=== PATIENT | female | born 1985 | race Caucasian/White ===

== ENCOUNTER 2016-09-30 19:40 | Emergency (ER) | payer MEDICAID ==
[~2016-09-30] VITALS: Ht 165.1 cm; Wt 125.0 kg
[2016-09-30 19:56] VITALS: BP 126/78; PULSE 80; RESP 18; TEMP 98.5; O2SAT 99
[2016-09-30] MEDS ORDERED: ROBA750T PO (20:11)
[2016-09-30] MEDS ORDERED: DICL75TA PO (20:11)
[2016-09-30] MEDS ORDERED: ORPHENADRINE INJ 60 MG/2 ML AMP IM ONE (20:15)
[2016-09-30] MEDS ORDERED: KETOROLAC TROMETHAMINE 60 MG/2 ML (IM) VIAL IM ONE (20:15)
--- NOTE | 2016-09-30 20:17 | PD ---
HPI Chief Complaint: Back/ Neck Pain or Injury Time Seen by Provider: 20:11 Travel History International Travel<30 days: No Contact w/Intl Traveler<30days: No Traveled to known affect area: No History of Present Illness HPI 30-year-old white female presents to emergency department by EMS from [facility]. She states that she has been in the retirement since she has been discharged from assisted. She is a single parent. She is 4 months . Her significant other who is the father of her child lives at the retirement as well. She states that she was released from incarceration within the past year after being charged for burglary to help support her drug habit. She states that she was addicted to opiates. Her significant other also was addicted to opiates. She states that he recently got sober during her . The patient states that she has chronic back pain. She states that this had started her addiction. Patient states that she was having more upper back pain earlier today and laid on the ground. She states that this caused her to have exacerbation of her lower back pain. She presents for evaluation. She denies any acute bowel or bladder changes. She states the pain is moderate to be severe at times with movement. Some relief with remaining still and bending her legs up. PFSH Past Medical History Narrative Medical Cervical dysplasia, Substance abuse, chronic back pain Tetanus Vaccination: < 5 Years ?: Not Past Surgical History Gynecologic Surgery: Yes (LEEP) Social History Alcohol Use: No Tobacco Use: No Substance Use: No Allergies-Medications (Allergen,Severity, Reaction): Coded Allergies: Celexa (Verified Allergy, Intermediate, Hives, 09/30/16) Reported Meds & Prescriptions Reported Meds & Active Scripts Active Flexeril (Cyclobenzaprine HCl) 10 Mg Tab 10 Mg PO TID Diclofenac Sodium DR (Diclofenac Sodium) 75 Mg Tabdr 75 Mg PO BID Robaxin (Methocarbamol) 750 Mg Tab 1,500 Mg PO TID 10 Days Review of Systems Except as stated in HPI: all other systems reviewed are Neg Physical Exam Narrative GENERAL: Well-developed, well-nourished in no apparent distress. Nontoxic appearing. HEAD: Normocephalic, atraumatic. EYES: Pupils equal round and reactive. Extraocular motions intact. No scleral icterus. No injection or drainage. ENT: Nose clear. Throat without erythema, tonsillar hypertrophy or exudate. Uvula midline. Airway patent. NECK: Trachea midline. Supple, nontender, moves head freely. No central bony tenderness or spasm. CARDIOVASCULAR: Regular rate and rhythm without murmurs, gallops, or rubs. RESPIRATORY: Clear to auscultation. Breath sounds equal bilaterally. No wheezes , rales, or rhonchi. GASTROINTESTINAL: Abdomen soft, non-tender, nondistended. No hepato-splenomegaly , or palpable masses. No guarding. EXTREMITIES: No clubbing, cyanosis, or edema. No joint tenderness. BACK: No central bony point tenderness. The patient complains of diffuse lower thoracic and lumbar tenderness. Positive straight leg raise bilaterally. No saddle anesthesia. She has good distal pulses. She is able to sit up in bed but moves slowly due to pain. Without deformity. No flank tenderness. NEUROLOGICAL: Awake, alert and oriented x 3 .Cranial nerves grossly intact. Motor and sensory grossly within normal limits. Normal speech. Data Data Last Documented VS Vital Signs Date Time Temp Pulse Resp B/P Pulse Ox O2 Delivery O2 Flow Rate FiO2 09/30/16 20:42 70 18 133/75 99 Room Air 09/30/16 19:56 98.5 Orders Ketorolac Inj (Toradol Inj) (09/30/16 20:15) Orphenadrine Inj (Norflex Inj) (09/30/16 20:15) [facility] Medical Decision Making Medical Screen Exam Complete: Yes Emergency Medical Condition: Yes Medical Record Reviewed: Yes Differential Diagnosis MDM: High Differential diagnoses: Back spasms,Fracture, sprain, strain, HNP, drug-seeking behavior, Narrative Course I discussed no opiates with this patient. I am concerned with her history of opiate addiction in the past that she would receive opiates that this may trigger her addiction. Patient verbally states understanding. She is given Toradol 60 mg and Norflex 60 mg IM. She'll be given diclofenac and Robaxin. This is acute exacerbation of chronic back pain Diagnosis Primary Impression: Acute exacerbation of chronic low back pain Patient Instructions: General Instructions Additional Instructions: Rest. Ice for the next 3 days followed by heat . Flexeril and Voltaren. Follow-up with a primary care doctor in one week. Return to the ER for emergencies. Med/Other Pt SpecificInfo: Prescription(s) given Scripts Cyclobenzaprine (Flexeril)10 Mg Tab10 Mg PO TID #30 TAB Prov:Fadia Melo MD 09/30/[address] 75 Mg Tabdr75 Mg PO BID #20 TAB Prov:Fadia Melo MD 09/30/16 Methocarbamol (Robaxin)750 Mg Tab1,500 Mg PO TID 10 Days Prov:Fadia Melo MD 09/30/16 Disposition: 01 DISCHARGE HOME Condition: Stable Georges Sweeney Sep 30, 2016 20:17
[2016-09-30 20:42] VITALS: BP 133/75; PULSE 70; RESP 18; O2SAT 99
[2016-09-30] MEDS ORDERED: CYCL1TAB29 PO (20:49)
== END 2016-09-30 21:21 | disposition home or self-care (01) ==
LOC: NEPD 19:40
DX: M54.5 Low back pain (principal); G89.29 Other chronic pain
CPT/HCPCS: 96372; 99283; J1885; J2360

== ENCOUNTER 2016-10-14 02:05 | Emergency (ER) | payer MEDICAID ==
[~2016-10-14] VITALS: Ht 177.8 cm; Wt 89.0 kg
[~2016-10-14 02:05] MED LIST: CYCL1TAB29 PO; DICL75TA PO; ROBA750T PO
[2016-10-14 02:09] VITALS: BP 157/88; PULSE 115; RESP 18; TEMP 98.4; O2SAT 98
[2016-10-14] MEDS ORDERED: EFFE150C PO ×2 (03:16→18:31)
[2016-10-14] MEDS ORDERED: DEPA500T PO (03:16)
--- NOTE | 2016-10-14 03:31 | PD ---
HPI Chief Complaint: Psychiatric Symptoms Time Seen by Provider: 03:20 Travel History International Travel<30 days: No Contact w/Intl Traveler<30days: No Traveled to known affect area: No History of Present Illness HPI This patient was examined in the presence of a female nurse. This is a 30-year- old female who reports a history of depression, PTSD. She presents for evaluation of suicidal ideation and depression. She reports over the past 4 months she has been feeling increasingly depressed, having thoughts of suicide. She reports that recently her boyfriend broke up with her and tonight she felt increasingly suicidal. She reports that she bought some crack and injected in in her arms and legs. She was hoping that the crack would kill her however it didn't. This was approximately 4 hours ago. Her ex-boyfriend convinced her to come here for psychiatric evaluation. She endorses some pain and bruising at the injection sites in her arms and legs. She denies any other ingestions. She denies any other illicit drug use. She denies any alcohol use. Denies any other acute medical problems. PFSH Past Medical History Bipolar Disorder: Yes Diabetes: No Psychiatric: Yes (PTSD) Immunizations Current: Yes Tetanus Vaccination: < 5 Years Influenza Vaccination: No ?: Not : 5 Para: 3 Dilation and Curettage (D&C): Yes Past Surgical History Gynecologic Surgery: Yes (LEEP) Social History Alcohol Use: No Tobacco Use: Yes Substance Use: Yes (crack) Allergies-Medications (Allergen,Severity, Reaction): Coded Allergies: Celexa (Verified Allergy, Intermediate, Hives, 10/14/16) Reported Meds & Prescriptions Reported Meds & Active Scripts Active Reported Depakote DR (Divalproex Sodium) 500 Mg Tabdr 500 Mg PO BID Effexor XR 24 HR (Venlafaxine HCl) 150 Mg Cap 150 Mg PO DAILY Review of Systems Except as stated in HPI: all other systems reviewed are Neg Physical Exam Narrative GENERAL: This is a well-developed well-nourished female who appears anxious and tearful SKIN: Warm and dry. No track spring and areas of ecchymosis noted to the arms and right thigh. No erythema or drainage. HEAD: Atraumatic. Normocephalic. EYES: Pupils equal and round. No scleral icterus. No injection or drainage. ENT: No nasal bleeding or discharge. Mucous membranes pink and moist. NECK: Trachea midline. No JVD. CARDIOVASCULAR: Regular rate and rhythm. No murmur appreciated. RESPIRATORY: No accessory muscle use. Clear to auscultation. Breath sounds equal bilaterally. GASTROINTESTINAL: Abdomen soft, non-tender, nondistended. Hepatic and splenic margins not palpable. MUSCULOSKELETAL: No obvious deformities. NEUROLOGICAL: Awake and alert. No obvious cranial nerve deficits. Motor grossly within normal limits. Normal speech. PSYCHIATRIC: Depressed, anxious, tearful Data Data Last Documented VS Vital Signs Date Time Temp Pulse Resp B/P Pulse Ox O2 Delivery O2 Flow Rate FiO2 10/14/16 02:09 98.4 115 18 157/88 98 Room Air Orders Complete Blood Count With Diff (10/14/16 03:11) Comprehensive Metabolic Panel (10/14/16 03:11) Psych Screen (10/14/16 03:11) Drug Screen, Random Urine (10/14/16 03:11) Alcohol (Ethanol) (10/14/16 03:11) Salicylates (Aspirin) (10/14/16 03:22) Tylenol (Acetaminophen) (10/14/16 03:22) Oximetry (10/14/16 03:22) Ecg Monitoring (10/14/16 03:22) Ed Urine Pregnancytest Poc (10/14/16 03:23) Labs Laboratory Tests Test 10/14/16 10/14/16 10/14/16 04:00 04:13 04:15 Acetaminophen Level LESS THAN 2.0 MCG/ML White Blood Count 6.8 TH/MM3 Red Blood Count 4.59 MIL/MM3 Hemoglobin 13.1 GM/DL Hematocrit 39.5 % Mean Corpuscular Volume 85.9 FL Mean Corpuscular Hemoglobin 28.5 PG Mean Corpuscular Hemoglobin 33.2 % Concent Red Cell Distribution Width 14.4 % Platelet Count 146 TH/MM3 Mean Platelet Volume 9.4 FL Neutrophils (%) (Auto) 71.4 % Lymphocytes (%) (Auto) 17.7 % Monocytes (%) (Auto) 9.7 % Eosinophils (%) (Auto) 0.8 % Basophils (%) (Auto) 0.4 % Neutrophils # (Auto) 4.9 TH/MM3 Lymphocytes # (Auto) 1.2 TH/MM3 Monocytes # (Auto) 0.7 TH/MM3 Eosinophils # (Auto) 0.1 TH/MM3 Basophils # (Auto) 0.0 TH/MM3 CBC Comment DIFF FINAL Differential Comment Sodium Level 135 MEQ/L Potassium Level 4.7 MEQ/L Chloride Level 103 MEQ/L Carbon Dioxide Level 25.7 MEQ/L Anion Gap 6 MEQ/L Blood Urea Nitrogen 5 MG/DL Creatinine 0.59 MG/DL Estimat Glomerular Filtration 118 ML/MIN Rate Random Glucose 88 MG/DL Calcium Level 8.7 MG/DL Total Bilirubin 0.4 MG/DL Aspartate Amino Transf 60 U/L (AST/SGOT) Alanine Aminotransferase 63 U/L (ALT/SGPT) Alkaline Phosphatase 81 U/L Total Protein 7.0 GM/DL Albumin 3.2 GM/DL Salicylates Level 5.4 MG/DL Ethyl Alcohol Level LESS THAN 3 MG/DL Urine Opiates Screen NEG Urine Barbiturates Screen NEG Urine Amphetamines Screen NEG Urine Benzodiazepines Screen NEG Urine Cocaine Screen POS Urine Cannabinoids Screen NEG MDM Medical Decision Making Medical Screen Exam Complete: Yes Emergency Medical Condition: Yes Medical Record Reviewed: Yes Differential Diagnosis Major depressive disorder, depressive disorder not otherwise specified, acute psychosis, adjustment reaction, substance induced mood disorder Narrative Course 30-year-old female presents for evaluation of suicidal ideation. She endorses crack use tonight. Denies any other ingestions. The patient will be monitored. Basic lab work, ECG monitoring has been ordered. Mental health screening discussed with the patient. Psychiatric screen ordered. Drug screen is positive for cocaine. Liver enzymes are mildly elevated. The patient is medically cleared. Diagnosis Primary Impression: Suicidal ideation Delgado Puente Oct 14, 2016 03:31
[2016-10-14 04:36] LABS: AUTOMATED NEUTROPHIL # 4.9 TH/MM3 (1.8-7.7); BASOPHIL % 0.4 % (0.0-2.0); EOSINOPHIL # 0.1 TH/MM3 (0-0.4); EOSINOPHIL % 0.8 % (0.0-4.0); HEMATOCRIT 39.5 % (35.0-46.0); HEMO FLAGS DIFF FINAL; LYMPH % 17.7 % (9.0-44.0); LYMPHOCYTE # 1.2 TH/MM3 (1.0-4.8); MEAN CELL VOLUME 85.9 FL (80.0-100.0); MEAN CORPUSCULAR HEMOGLOBIN 28.5 PG (27.0-34.0); MEAN CORPUSCULAR HGB CONC 33.2 % (32.0-36.0); MONO % 9.7 % (0.0-8.0); NEUT % 71.4 % (16.0-70.0); PLATELET COUNT 146 TH/MM3 (150-450); RED BLOOD COUNT 4.59 MIL/MM3 (4.00-5.30); RED CELL DISTRIBUTION WIDTH 14.4 % (11.6-17.2); WHITE BLOOD COUNT 6.8 TH/MM3 (4.0-11.0)
[2016-10-14 04:49] LABS: AMPHETAMINE, URINE NEG (NEG); BARBITURATES, URINE NEG (NEG); COCAINE, URINE POS (NEG)
[2016-10-14 05:21] LABS: ALKALINE PHOSPHATASE 81 U/L (45-117); ALT (GPT) 63 U/L (10-53); ANION GAP 6 MEQ/L (5-15); AST (GOT) 60 U/L (15-37); BICARBONATE 25.7 MEQ/L (21.0-32.0); BLOOD UREA NITROGEN 5 MG/DL (7-18); CHLORIDE 103 MEQ/L (98-107); GLOMERULAR FILTRATION RATE 118 ML/MIN (>89); POTASSIUM 4.7 MEQ/L (3.5-5.1); SODIUM (NA) 135 MEQ/L (136-145); TOTAL BILIRUBIN ADULT 0.4 MG/DL (0.2-1.0)
[2016-10-14 05:58] VITALS: BP 121/68; PULSE 86; RESP 19; O2SAT 97
[2016-10-14 11:09] VITALS: BP 114/65; PULSE 87; RESP 17; O2SAT 95
[2016-10-14 14:05] VITALS: BP 114/68; PULSE 85; RESP 18; TEMP 97; O2SAT 95
[2016-10-14] MEDS ORDERED: IBUPROFEN 400 MG TAB PO ONE (17:45)
[2016-10-14] MEDS ORDERED: VENLAFAXINE HCL XR 75 MG CAP PO SCH (18:30)
[2016-10-14] MEDS ORDERED: DEPA500T3 PO (18:31)
[2016-10-14] MEDS ORDERED: CEPH-460 PO (18:32)
--- NOTE | 2016-10-14 18:38 | PD ---
History of Present Illness Chief Complaint: Psychiatric Symptoms Time Seen by Provider: 18:30 Travel History International Travel<30 Days: No Contact w/Intl Traveler<30days: No Known affected area: No Legal Status Legal Status: Spann Act Spann Act Signed By: History of Present Illness: Patient reportedly using crack cocaine as a suicide attempt earlier today. She now denies being suicidal and states she wants to stay in the [facility] until she can get housing with public assistance. She verbally contracts for safety and her cognition is intact. She demonstrates no suicidal or homicidal ideation, plan or intent. She exhibits no psychotic symptoms. She would like to get back on her mood stabilizing medication and her antidepressant medication , both of which were prescribed by this physician. She also requested to be placed on an antibiotic, Keflex, for what appears to be skin infections due to IV or other drug abuse. PFSH Past Medical History Medical History: Denies Significant Hx Bipolar Disorder: Yes Diabetes: No Psychiatric: Yes (PTSD) Immunizations Current: Yes Tetanus Vaccination: < 5 Years Influenza Vaccination: No ?: Not : 5 Para: 3 Dilation and Curettage (D&C): Yes Past Surgical History Gynecologic Surgery: Yes (LEEP) Psychiatric History Psychiatric History Hx Psychiatric Treatment: History of treatment for depression. History of Inpatient Treatment: No Guns or firearms in home: No Social History Hx Alcohol Use: No Hx Tobacco Use: Yes Hx Substance Use: Yes (crack) Hx of Substance Use Treatment: Yes Allergies-Medications (Allergen,Severity, Reaction): Coded Allergies: Celexa (Verified Allergy, Intermediate, Hives, 10/14/16) Reported Meds & Prescriptions Reported Meds & Active Scripts Active Keflex (Cephalexin) 500 Mg Cap 500 Mg PO Q8H Effexor XR 24 HR (Venlafaxine HCl) 150 Mg Cap 150 Mg PO DAILY Depakote ER (Divalproex Sodium) 500 Mg Norberto 500 Mg PO BID Reported Depakote DR (Divalproex Sodium) 500 Mg Tabdr 500 Mg PO BID Effexor XR 24 HR (Venlafaxine HCl) 150 Mg Cap 150 Mg PO DAILY Review of Systems ROS Limitations: Clinical Condition Exam Exam Limitations: Clinical Condition Alert: Yes [place]: Person, Place, Date Mood: Calm Affect: Appropriate Speech: Clear Eye Contact: Normal Memory Intact: Immediate, Recent, Remote Insight/Judgement Adequate MDM Medical Decision Making Assessment/Plan Patient no longer meets Spann act criteria or inpatient psychiatric hospitalization criteria. She was given prescriptions as requested and started back on her medications. She plans to return to the [facility] and get her medicines filled. Orders Complete Blood Count With Diff (10/14/16 03:11) Comprehensive Metabolic Panel (10/14/16 03:11) Psych Screen (10/14/16 03:11) Drug Screen, Random Urine (10/14/16 03:11) Alcohol (Ethanol) (10/14/16 03:11) Salicylates (Aspirin) (10/14/16 03:22) Tylenol (Acetaminophen) (10/14/16 03:22) Oximetry (10/14/16 03:22) Ecg Monitoring (10/14/16 03:22) Ed Urine Pregnancytest Poc (10/14/16 03:23) Diet Regular Basic (10/14/16 Breakfast) Diet Regular Basic (10/14/16 Dinner) Ibuprofen (Motrin) (10/14/16 17:45) Divalproex Dr (Depakote ) (10/14/16 21:00) Venlafaxine Xr (Effexor Xr) (10/14/16 18:30) Results Vital Signs Date Time Temp Pulse Resp B/P Pulse Ox O2 Delivery O2 Flow Rate FiO2 10/14/16 14:05 97.0 85 18 114/68 95 Room Air 10/14/16 11:09 87 17 114/65 95 Room Air 10/14/16 05:58 86 19 121/68 97 Room Air 10/14/16 02:09 98.4 115 18 157/88 98 Room Air Laboratory Tests Test 10/14/16 10/14/16 10/14/16 04:00 04:13 04:15 Acetaminophen Level LESS THAN 2.0 White Blood Count 6.8 Red Blood Count 4.59 Hemoglobin 13.1 Hematocrit 39.5 Mean Corpuscular Volume 85.9 Mean Corpuscular Hemoglobin 28.5 Mean Corpuscular Hemoglobin 33.2 Concent Red Cell Distribution Width 14.4 Platelet Count 146 Mean Platelet Volume 9.4 Neutrophils (%) (Auto) 71.4 Lymphocytes (%) (Auto) 17.7 Monocytes (%) (Auto) 9.7 Eosinophils (%) (Auto) 0.8 Basophils (%) (Auto) 0.4 Neutrophils # (Auto) 4.9 Lymphocytes # (Auto) 1.2 Monocytes # (Auto) 0.7 Eosinophils # (Auto) 0.1 Basophils # (Auto) 0.0 CBC Comment DIFF FINAL Differential Comment Sodium Level 135 Potassium Level 4.7 Chloride Level 103 Carbon Dioxide Level 25.7 Anion Gap 6 Blood Urea Nitrogen 5 Creatinine 0.59 Estimat Glomerular Filtration 118 Rate Random Glucose 88 Calcium Level 8.7 Total Bilirubin 0.4 Aspartate Amino Transf 60 (AST/SGOT) Alanine Aminotransferase 63 (ALT/SGPT) Alkaline Phosphatase 81 Total Protein 7.0 Albumin 3.2 Salicylates Level 5.4 Ethyl Alcohol Level LESS THAN 3 Urine Opiates Screen NEG Urine Barbiturates Screen NEG Urine Amphetamines Screen NEG Urine Benzodiazepines Screen NEG Urine Cocaine Screen POS Urine Cannabinoids Screen NEG Diagnosis Primary Impression: Adjustment disorder with mixed disturbance of emotions and conduct Prescriptions Cephalexin (Keflex)500 Mg [id number] Mg PO Q8H #21 CAP Ref 0 Prov:Edu Lott MD 10/14/16 Venlafaxine ER 24 HR (Effexor XR 24 HR)150 Mg [id number] Mg PO DAILY #30 CAP Ref 0 Prov:Edu Lott MD 10/14/16 Divalproex ER (Depakote ER)500 Mg [id number] Mg PO BID #60 TAB Ref 0 Prov:Edu Lott MD 10/14/16 Edu Lott MD Oct 14, 2016 18:38
[2016-10-14] MEDS ORDERED: DIVALPROEX DR 500 MG TABEC PO SCH (21:00)
== END 2016-10-14 20:10 | disposition home or self-care (01) ==
LOC: NEPD 02:05 → NEPJ 20:10
DX: F43.25 Adjustment disorder with mixed disturbance of emotions and conduct (principal); Z87.891 Personal history of nicotine dependence
CPT/HCPCS: 80053; 80307; 84703; 85025; 99284

== ENCOUNTER 2017-01-01 18:36 | Emergency (ER) | payer MEDICAID ==
[~2017-01-01] VITALS: Ht 175.3 cm; Wt 118.0 kg
[~2017-01-01 18:36] MED LIST changes: +CEPH-460 PO; -CYCL1TAB29 PO; +DEPA500T PO; +DEPA500T3 PO; -DICL75TA PO; +EFFE150C PO; -ROBA750T PO
[2017-01-01 18:38] VITALS: BP 140/96; PULSE 62; RESP 20; TEMP 98.6; O2SAT 99
[2017-01-01] MEDS ORDERED: GABA600T PO (20:33)
[2017-01-01] MEDS ORDERED: EFFE150C PO (20:35)
--- NOTE | 2017-01-01 20:40 | PD ---
HPI Chief Complaint: Medication Refill Request Time Seen by Provider: 20:37 Travel History International Travel<30 days: No Contact w/Intl Traveler<30days: No Traveled to known affect area: No History of Present Illness HPI 31-year-old white female presents to emergency department requesting a refill of her Effexor. She takes 150 mg of Effexor XR daily. She states that she has not had it in 24 hours. She has history of chronic depression, anxiety, PTSD, substance abuse and back pain. Patient states that she moved from [place] to [facility] and has no ability to see her doctor. She has no transportation has to take the bus. PFSH Past Medical History Narrative Medical Anxiety, depression, PTSD, substance abuse, chronic back pain Bipolar Disorder: Yes Diabetes: No Psychiatric: Yes (PTSD) Immunizations Current: Yes Tetanus Vaccination: < 5 Years ?: Not : 5 Para: 4 Miscarriage: 1 Dilation and Curettage (D&C): Yes Past Surgical History Gynecologic Surgery: Yes (LEEP) Social History Alcohol Use: No Tobacco Use: Yes Substance Use: No Allergies-Medications (Allergen,Severity, Reaction): Coded Allergies: Celexa (Verified Allergy, Intermediate, Hives, 01/01/17) Reported Meds & Prescriptions Reported Meds & Active Scripts Active Effexor XR 24 HR (Venlafaxine HCl) 150 Mg Cap 150 Mg PO DAILY Effexor XR 24 HR (Venlafaxine HCl) 150 Mg Cap 150 Mg PO DAILY Depakote ER (Divalproex Sodium) 500 Mg Norberto 500 Mg PO BID Reported Gabapentin 600 Mg Tab 600 Mg PO TID Review of Systems Except as stated in HPI: all other systems reviewed are Neg Gastrointestinal: Positive: Nausea, No: Vomiting Physical Exam Narrative GENERAL: This is a well-nourished, well-developed patient, in no apparent distress. SKIN: No rashes, ecchymoses or lesions. Warm and dry. HEAD: Atraumatic. Normocephalic. EYES: PERRL, EOMI, no discharge or injection. No scleral icterus. EARS: Clear NOSE: Nasal turbinates appear normal. THROAT: Mucosa pink and moist. Airway patent. NECK: Trachea midline. supple, moves head freely. LUNGS: Clear to auscultation. CV: Regular in rhythm. ABDOMEN: Soft nontender. EXT: No clubbing cyanosis or edema. Data Data Last Documented VS Vital Signs Date Time Temp Pulse Resp B/P Pulse Ox O2 Delivery O2 Flow Rate FiO2 01/01/17 18:38 98.6 62 20 140/96 99 Room Air Orders Venlafaxine Xr (Effexor Xr) (01/01/17 20:45) MDM Medical Decision Making Medical Screen Exam Complete: Yes Emergency Medical Condition: Yes Medical Record Reviewed: Yes Differential Diagnosis Differential diagnoses: Anxiety, depression, bipolar, PTSD, med refill Narrative Course Patient's given Effexor 150 mg XR. This is depression, medication refill Diagnosis Primary Impression: depression Additional Impression: medication refill Referrals: [facility] (Out patient) 1 day Patient Instructions: General Instructions Additional Instructions: Rest. Follow-up with [facility] this week. Medications as directed. Scripts Venlafaxine ER 24 HR (Effexor XR 24 HR)150 Mg [id number] Mg PO DAILY #15 CAP Ref 0 Prov:Merced Ray DO 01/01/17 Disposition: 01 DISCHARGE HOME Condition: Stable Georges Sweeney Jan 01, 2017 20:40
[2017-01-01] MEDS ORDERED: VENLAFAXINE HCL XR 75 MG CAP PO ONE (20:45)
== END 2017-01-01 21:10 | disposition home or self-care (01) ==
LOC: NEPK 18:36
DX: Z76.0 Encounter for issue of repeat prescription (principal); F32.9 Major depressive disorder, single episode, unspecified; F43.10 Post-traumatic stress disorder, unspecified; F31.9 Bipolar disorder, unspecified; Z79.899 Other long term (current) drug therapy; Z72.0 Tobacco use
CPT/HCPCS: 99283

== ENCOUNTER 2017-02-02 02:16 | Emergency (ER) | payer MEDICAID ==
[~2017-02-02] VITALS: Ht 175.3 cm; Wt 100.0 kg
[~2017-02-02 02:16] MED LIST changes: -CEPH-460 PO; -DEPA500T PO; +GABA600T PO
[2017-02-02 02:42] VITALS: BP 134/85; PULSE 84; RESP 20; TEMP 98.7; O2SAT 98
--- NOTE | 2017-02-02 02:56 | PD ---
HPI Chief Complaint: General Weakness Time Seen by Provider: 02:39 Travel History International Travel<30 days: No Contact w/Intl Traveler<30days: No Traveled to known affect area: No History of Present Illness HPI 31-year-old female here for evaluation of a multitude of complaints. She arrives by ambulance with her 8-month-old daughter who is also being evaluated by me for a fever. She reports that they live in a fdc, and that all the kids in the fdc have been sick. Her daughters fever started yesterday. The patient's symptoms started 3 months ago and she describes episodes of feeling lightheaded/dizzy/sick/nauseous. These episodes come and go. She states that last night she felt lightheaded. She reports history of gestational diabetes and has a glucometer. She checked her blood sugar and it was 85. She believes that this may be causing her symptoms. She also noted that this occurred after smoking a cigarette. Patient has also noted some dysuria and increased urinary frequency. PFSH Past Medical History Bipolar Disorder: Yes Diabetes: Yes (gestational) Patient Takes Glucophage: No Psychiatric: Yes (PTSD) Immunizations Current: Yes Tetanus Vaccination: < 5 Years ?: Unknown : 5 Para: 4 Miscarriage: 1 Dilation and Curettage (D&C): Yes Past Surgical History Gynecologic Surgery: Yes (LEEP) Social History Alcohol Use: No Tobacco Use: Yes (about a pack/day) Substance Use: No Allergies-Medications (Allergen,Severity, Reaction): Coded Allergies: Celexa (Verified Allergy, Intermediate, Hives, 02/02/17) Reported Meds & Prescriptions Reported Meds & Active Scripts Active No Active Prescriptions or Reported Medications Review of Systems Except as stated in HPI: all other systems reviewed are Neg Physical Exam Narrative GENERAL: Well-developed, well-nourished, awake, alert, comfortable, no apparent distress. SKIN: Focused skin assessment warm/dry. HEAD: Atraumatic. Normocephalic. EYES: Pupils equal and round. No scleral icterus. No injection or drainage. ENT: Mucous membranes pink and moist. NECK: Trachea midline. No JVD. CARDIOVASCULAR: Regular rate and rhythm. RESPIRATORY: No accessory muscle use. Clear to auscultation. Breath sounds equal bilaterally. GASTROINTESTINAL: Abdomen soft, non-tender, nondistended. MUSCULOSKELETAL: No obvious deformities. No clubbing. No cyanosis. No edema. NEUROLOGICAL: Awake and alert. No obvious cranial nerve deficits. Motor grossly within normal limits. Normal speech. PSYCHIATRIC: Appropriate mood and affect; insight and judgment normal. Data Data Last Documented VS Vital Signs Date Time Temp Pulse Resp B/P Pulse Ox O2 Delivery O2 Flow Rate FiO2 02/02/17 02:42 98.7 84 20 134/85 98 Orders Urinalysis - C+S If Indicated (02/02/17 02:40) Ed Urine Pregnancytest Poc (02/02/17 02:40) Ondansetron Odt (Zofran Odt) (02/02/17 03:15) Labs Laboratory Tests Test 02/02/17 02:57 Urine Color YELLOW Urine Turbidity CLEAR Urine pH 6.0 Urine Specific [place] 1.017 Urine Protein NEG mg/dL Urine Glucose (UA) NEG mg/dL Urine Ketones NEG mg/dL Urine Occult Blood NEG Urine Nitrite NEG Urine Bilirubin NEG Urine Urobilinogen LESS THAN 2.0 MG/DL Urine Leukocyte Esterase SMALL Urine RBC 1 /hpf Urine WBC 8 /hpf Urine Squamous Epithelial 5 /hpf Cells Urine Mucus FEW /lpf Microscopic Urinalysis Comment CULT NOT INDICATED MDM Medical Decision Making Medical Screen Exam Complete: Yes Emergency Medical Condition: Yes Differential Diagnosis UTI, , flulike symptoms, metabolic abnormality Narrative Course Vital signs show heart rate 84, blood pressure 134/85, pulse ox 90% on room air , oral temp of 98.7F. Patient has several different complaints, none of which required an emergency workup. This was discussed with the patient who I advised requires a primary care physician for further evaluation. She agrees with this. Urine is negative. UA is not suggestive of UTI. Patient is stable for discharge home with outpatient follow-up with a primary care physician this week. She was informed on when to return to the emergency department. She verbalizes understanding and agreement with plan. Diagnosis Primary Impression: Nausea Referrals: [facility] 3 days Primary Care Physician 3 days Additional Instructions: Follow-up with a primary care physician this week. Return to the emergency department for worsening symptoms or any other concerns. Scripts Ondansetron Odt (Zofran Odt)4 Mg Tab4 Mg SL Q8HR PRN (Nausea/Vomiting) #20 TAB Ref 0 Prov:Adair Pearce MD 02/02/17 Disposition: 01 DISCHARGE HOME Condition: Stable Geoff Pearcean N MD Feb 02, 2017 02:56
[2017-02-02] MEDS ORDERED: ONDANSETRON ODT 4 MG TAB PO ONE (03:15)
[2017-02-02 03:51] LABS: BLOOD, URINE NEG (NEG); COMMENT (UR) CULT NOT INDICATED; CULTURE IF INDICATED CULT NOT INDICATED; GLUCOSE,URINE NEG (NEG); KETONE, URINE NEG (NEG); MUCUS URINE FEW /lpf (OCC); NITRITE,URINE NEG (NEG); SQUAMOUS EPITHELIAL CELL URINE 5 /hpf (0-5); URINE COLOR YELLOW (YELLW/STRAW)
[2017-02-02] MEDS ORDERED: ZOFR4TAB3 SL (03:59)
== END 2017-02-02 05:37 | disposition home or self-care (01) ==
LOC: NEPC 02:16
DX: R11.0 Nausea (principal); R42 Dizziness and giddiness; R35.0 Frequency of micturition; R30.0 Dysuria; F31.9 Bipolar disorder, unspecified; F43.10 Post-traumatic stress disorder, unspecified; F17.200 Nicotine dependence, unspecified, uncomplicated
CPT/HCPCS: 81001; 84703; 99283

== ENCOUNTER 2017-06-10 10:54 | Emergency (ER) | payer MEDICAID ==
[~2017-06-10] VITALS: Ht 175.3 cm; Wt 120.4 kg
[~2017-06-10 10:54] MED LIST changes: -DEPA500T3 PO; -EFFE150C PO; -GABA600T PO; +ZOFR4TAB3 SL
[2017-06-10 10:55] VITALS: BP 135/63; PULSE 86; RESP 16; TEMP 98.6; O2SAT 99
[2017-06-10 11:32] LABS: BILIRUBIN, URINE NEG (NEG); BLOOD, URINE NEG (NEG); GLUCOSE,URINE NEG (NEG); KETONE, URINE NEG (NEG); NITRITE,URINE NEG (NEG); URINE LEUKOCYTE ESTERASE NEG (NEG)
[2017-06-10 11:42] LABS: URINE COLOR YELLOW (YELLW/STRAW)
[2017-06-10 11:43] LABS: AMORPHOUS SEDIMENT, URINE FEW; BACTERIA, URINE MOD /hpf; SQUAMOUS EPITHELIAL CELL URINE > 8 /hpf (0-5)
--- NOTE | 2017-06-10 12:26 | PD ---
HPI Chief Complaint: Musculoskeletal Complaint Time Seen by Provider: 11:18 Travel History International Travel<30 days: No Contact w/Intl Traveler<30days: No Traveled to known affect area: No History of Present Illness HPI 31-year-old female presents emergency department for evaluation of right lateral thoracic back pain 3 patient states she always has back pain. She is currently on her sixth . She's had 4 live births and one miscarriage. Estimated due date of this and 11/02/17. Patient has spoken with her OB about her back pain, Dr. Hill. She has a follow-up appointment in 2 weeks for routine care. Patient states she has a [id number] baby at home and rides a bike to work. She is states she is exhausted and so giving him pain. She took Tylenol at 8 AM this morning. She states she has been using heating packs and ice packs to the area but the pain is persistent. She denies any injuries, falls, traumas precipitating pain. She denies any shortness breath or chest pain. He denies any cramping, abdominal pain, vaginal discharge or vaginal bleeding. Patient denies any fever, chills, incontinence of urine or stool, saddle numbness. Patient denies any paresthesias. PFSH Past Medical History Bipolar Disorder: Yes Diabetes: Yes (gestational) Patient Takes Glucophage: No Psychiatric: Yes (PTSD) Immunizations Current: Yes Influenza Vaccination: No ?: LMP: 01/26/17 : 5 Para: 4 Miscarriage: 1 Dilation and Curettage (D&C): Yes Past Surgical History Gynecologic Surgery: Yes (LEEP) Social History Alcohol Use: No Tobacco Use: Yes (2-4 cigs per day) Substance Use: No Allergies-Medications (Allergen,Severity, Reaction): Coded Allergies: citalopram (Unverified Allergy, Intermediate, Hives, 06/10/17) Reported Meds & Prescriptions Reported Meds & Active Scripts Active Zofran Odt (Ondansetron Odt) 4 Mg Tab 4 Mg SL Q8HR PRN Review of Systems Except as stated in HPI: all other systems reviewed are Neg Physical Exam Narrative GENERAL: Well-nourished, well-developed morbidly obese 31-year-old female patient in no acute distress. Nontoxic appearing. SKIN: Focused skin assessment warm/dry. HEAD: Normocephalic. Atraumatic. EYES: No scleral icterus. No injection or drainage. NECK: Supple, trachea midline. No JVD or lymphadenopathy. CARDIOVASCULAR: Regular rate and rhythm without murmurs, gallops, or rubs. RESPIRATORY: Breath sounds equal bilaterally. No accessory muscle use. GASTROINTESTINAL: Abdomen soft, non-tender, nondistended. MUSCULOSKELETAL: Range of motion to bilateral upper and lower extremities. No obvious deformity, ecchymosis, erythema, cyanosis, or edema. BACK: Right lateral thoracic tender. No obvious deformity, ecchymosis, erythema , cyanosis. No CVA tenderness. Data Data Last Documented VS Vital Signs Date Time Temp Pulse Resp B/P (MAP) Pulse Ox O2 Delivery O2 Flow Rate FiO2 06/10/17 10:55 98.6 86 16 135/63 (87) 99 Orders Orders Urinalysis - C+S If Indicated (06/10/17 11:05) Ed Urine Pregnancytest Poc (06/10/17 11:13) Urine Culture (06/10/17 11:00) Heart Tones (06/10/17 11:52) Acetaminophen (Tylenol) (06/10/17 12:30) Ice/Cold Pack (06/10/17 12:20) Labs Laboratory Tests Test 06/10/17 11:00 Urine Collection Type CLEAN CATCH Urine Color YELLOW Urine Turbidity SLIGHT Urine pH 8.0 Urine Specific [place] 1.007 Urine Protein NEG mg/dL Urine Glucose (UA) NEG mg/dL Urine Ketones NEG mg/dL Urine Occult Blood NEG Urine Nitrite NEG Urine Bilirubin NEG Urine Leukocyte Esterase NEG Urine Squamous Epithelial Cells > 8 /hpf Urine Amorphous Sediment FEW Urine Bacteria MOD /hpf Microscopic Urinalysis Comment CULTURE INDICATED Urine Collection Time 1100 MDM Medical Decision Making Medical Screen Exam Complete: Yes Emergency Medical Condition: Yes Differential Diagnosis Differential diagnoses include but not limited to chronic back pain, muscular strain, muscular sprain Narrative Course UA was ordered for the patient received a bed in triage. UA was contaminated with epithelial cells. Otherwise looked unremarkable. Patient denies any dysuria or hematuria. She given Tylenol for back pain at our facility and discharged home with instructions to use heating packs and ice pads, Tylenol and follow-up with her OB. Patient stable and discharged home at this time. Diagnosis Primary Impression: Back pain in Referrals: Credit Risk Analyst Patient Instructions: Back Pain (ED), General Instructions Additional Instructions: Please return to emergency department if your symptoms return or worsen. Follow up with your formal service waiter May take Tylenol as needed for pain. May use ice or heating pads as needed for pain. Disposition: 01 DISCHARGE HOME Condition: Stable KraigAshleigh owens Vanesa BENSON Jun 10, 2017 12:26
[2017-06-10] MEDS ORDERED: ACETAMINOPHEN 325 MG TAB PO ONE (12:30)
== END 2017-06-10 13:22 | disposition home or self-care (01) ==
LOC: PHED 10:54 → PHEFT 13:22
DX: O26.899 Other specified pregnancy related conditions, unspecified trimester (principal); M54.6 Pain in thoracic spine; R82.71 Bacteriuria; O99.330 Smoking (tobacco) complicating pregnancy, unspecified trimester; F17.210 Nicotine dependence, cigarettes, uncomplicated; Z3A.00 Weeks of gestation of pregnancy not specified
CPT/HCPCS: 81001; 84703; 87086; 99283

== ENCOUNTER 2017-06-12 15:30 | Emergency (ER) | payer MEDICAID ==
[~2017-06-12] VITALS: Ht 175.3 cm; Wt 120.0 kg
[2017-06-12 15:32] VITALS: BP 116/56; PULSE 85; RESP 18; TEMP 98.5; O2SAT 98
--- NOTE | 2017-06-12 15:50 | PD ---
HPI Chief Complaint: Cold / Flu Symptoms Time Seen by Provider: 15:50 Travel History International Travel<30 days: No Contact w/Intl Traveler<30days: No Traveled to known affect area: No History of Present Illness HPI 31-year-old female presents the emergency Department with several day history of increasing sinus pressure, headache, postnasal drip, sore throat, and cough. Patient does have an inhaler at home which she uses occasionally. Patient is . She has a history of sinus trouble in the past. She admits to still smoking occasionally. She denies. Fever, chills, or abdominal complaints. She is allergic to citalopram. PFSH Past Medical History Bipolar Disorder: Yes Diabetes: Yes (gestational) Psychiatric: Yes (PTSD) Immunizations Current: Yes ?: : 5 Para: 4 Miscarriage: 1 Dilation and Curettage (D&C): Yes Past Surgical History Gynecologic Surgery: Yes (LEEP) Social History Alcohol Use: No Tobacco Use: Yes (2-4 cigs per day) Substance Use: No Allergies-Medications (Allergen,Severity, Reaction): Coded Allergies: citalopram (Unverified Allergy, Intermediate, Hives, 06/12/17) Reported Meds & Prescriptions Reported Meds & Active Scripts Active Zofran Odt (Ondansetron Odt) 4 Mg Tab 4 Mg SL Q8HR PRN Review of Systems Except as stated in HPI: all other systems reviewed are Neg General / Constitutional: Positive: Chills, No: Fever Eyes: No: Visual changes HENT: Positive: Headaches, Sore Throat, Rhinitis, Rhinorrhea, Congestion, No: Vertigo, Lightheadedness, Nosebleed, Neck Stiffness, Neck Pain, Gingival Bleeding, Dental Difficulties, Ear Discharge, Earache Cardiovascular: No: Chest Pain or Discomfort Respiratory: Positive: Cough, Shortness of Breath, Wheezing, No: Sneezing ( mild.) Gastrointestinal: No: Nausea, Vomiting, Abdominal Pain Genitourinary: Positive: Other (.), No: Dysuria Musculoskeletal: No: Pain Skin: No Rash Neurologic: No: Weakness Psychiatric: No: Depression Endocrine: No: Polydipsia Hematologic/Lymphatic: No: Easy Bruising Physical Exam Narrative GENERAL: Patient appears in no acute distress. SKIN: Warm and dry. Normal color. Normal turgor. HEAD: Atraumatic. Normocephalic. EYES: Pupils equal and round. No scleral icterus. No injection or drainage. ENT: No nasal bleeding or discharge. Mucous membranes pink and moist. Patient has moderate sinus tenderness with palpation to both frontal and maxillary sinuses bilaterally. Pharynx is cobblestoned and erythematous with postnasal drip noted in the posterior pharynx without significant tonsillitis. Uvula is midline. TMs are dull but clear bilaterally. NECK: Trachea midline. Supple and nontender. CARDIOVASCULAR: Regular rate and rhythm. RESPIRATORY: No accessory muscle use. Diffuse wheezes throughout to auscultation. Breath sounds equal bilaterally. GASTROINTESTINAL: Abdomen soft, non-tender, nondistended. Hepatic and splenic margins not palpable. MUSCULOSKELETAL: Extremities without clubbing, cyanosis, or edema. No obvious deformities. NEUROLOGICAL: Awake and alert. No obvious cranial nerve deficits. Motor grossly within normal limits. Five out of 5 muscle strength in the arms and legs. Normal speech. PSYCHIATRIC: Appropriate mood and affect; insight and judgment normal. Data Data Last Documented VS Vital Signs Date Time Temp Pulse Resp B/P (MAP) Pulse Ox O2 Delivery O2 Flow Rate FiO2 06/12/17 15:32 98.5 85 18 116/56 (76) 98 MDM Medical Decision Making Medical Screen Exam Complete: Yes Emergency Medical Condition: Yes Differential Diagnosis Sinusitis. Postnasal drip. Cough. Wheezing. Narrative Course Patient is medically stable at time of exam. Patient treated with amoxicillin 875 twice a day 10 days. Recommend frequent saline nasal spray to irrigate the sinuses. Patient is given a refill of her albuterol which is to be used 2 puffs every 4- 6 hours when necessary cough and wheeze.\ Recommend close follow-up with her primary care physician/OB to ensure improvement. Patient can return if worsening symptoms develop. Diagnosis Primary Impression: Sinusitis Additional Impression: Acute wheezy bronchitis Patient Instructions: General Instructions, How to Stop Smoking (DC), Sinusitis (ED), Wheezing (ED) Additional Instructions: Patient is medically stable at time of exam. Patient treated with amoxicillin 875 twice a day 10 days. Recommend frequent saline nasal spray to irrigate the sinuses. Patient is given a refill of her albuterol which is to be used 2 puffs every 4- 6 hours when necessary cough and wheeze.\ Recommend close follow-up with her primary care physician/OB to ensure improvement. Patient can return if worsening symptoms develop. Scripts Albuterol 18 GM Inh (Ventolin Hfa 18 GM Inh) 90 Mcg/Act Aer 2 PUFF INH Q4-6H Y for SHORTNESS OF BREATH, #1 INHALER 0 Refills Prov: Sergei Carrillo MD 06/12/17 Amoxicillin (Amoxicillin) 875 Mg Tab 875 MG PO BID for Infection for 10 Days, #20 TAB 0 Refills Prov: Sergei Carrillo MD 06/12/17 Disposition: 01 DISCHARGE HOME Condition: Stable Cristo Morales Jun 12, 2017 15:50
[2017-06-12] MEDS ORDERED: VENTAER INH (16:02)
[2017-06-12] MEDS ORDERED: AMOX875T PO (16:02)
== END 2017-06-12 16:19 | disposition home or self-care (01) ==
LOC: PHEFT 15:30
DX: O26.899 Other specified pregnancy related conditions, unspecified trimester (principal); O24.419 Gestational diabetes mellitus in pregnancy, unspecified control; J32.9 Chronic sinusitis, unspecified; J20.9 Acute bronchitis, unspecified; F31.9 Bipolar disorder, unspecified; F43.10 Post-traumatic stress disorder, unspecified; Z72.0 Tobacco use
CPT/HCPCS: 99284

== ENCOUNTER 2017-06-28 13:41 | Emergency (ER) | payer MEDICAID ==
[~2017-06-28] VITALS: Ht 175.3 cm; Wt 120.0 kg
[~2017-06-28 13:41] MED LIST changes: +AMOX875T PO; +VENTAER INH
[2017-06-28 13:55] VITALS: BP 145/78; PULSE 77; RESP 16; TEMP 98.5; O2SAT 99
--- NOTE | 2017-06-28 14:59 | PD ---
HPI Chief Complaint: Cold / Flu Symptoms Time Seen by Provider: 14:48 Travel History International Travel<30 days: No Contact w/Intl Traveler<30days: No Traveled to known affect area: No History of Present Illness HPI 31-year-old 22 week female presents to the ED for evaluation of 2 day history of sinus pressure, sinus congestion, yellow rhinorrhea, nonproductive cough. Patient endorses mild sore throat. Denies difficulty swallowing. She endorses 6/10 pain in the left shoulder blade area which she associates with her coughing. Constant, worsened by coughing. No alleviating factors reported. Patient denies fever, chills, ear pain, abdominal pain, dysuria, vaginal bleeding, vaginal discharge. The patient states that she just finished a course of antibiotics for sinusitis. She states that her symptoms did improve from that time. She did not receive this years flu vaccine. She requests a muscle relaxant for her back pain that is safe in . PFSH Past Medical History Bipolar Disorder: Yes Diabetes: Yes (gestational) Patient Takes Glucophage: No Psychiatric: Yes (PTSD) Immunizations Current: Yes Tetanus Vaccination: < 5 Years ?: LMP: 22 weeks : 5 Para: 4 Miscarriage: 1 Dilation and Curettage (D&C): Yes Past Surgical History Gynecologic Surgery: Yes (LEEP) Social History Alcohol Use: No Tobacco Use: Yes (/2 ppd) Substance Use: No (in [facility]) Allergies-Medications (Allergen,Severity, Reaction): Coded Allergies: citalopram (Unverified Allergy, Intermediate, Hives, 06/28/17) Reported Meds & Prescriptions Reported Meds & Active Scripts Active Flexeril (Cyclobenzaprine HCl) 10 Mg Tab 10 Mg PO TID Claritin (Loratadine) 10 Mg Cap 10 Mg PO DAILY 30 Days Pseudoephedrine (Pseudoephedrine HCl) 60 Mg Tab 60 Mg PO Q6H PRN Review of Systems Except as stated in HPI: all other systems reviewed are Neg Physical Exam Narrative GENERAL: Well-nourished, well-developed white female in no acute distress. SKIN: Warm and dry. HEAD: Normocephalic. Atraumatic. EYES: No scleral icterus. No injection or drainage. PERRLA. EOMI. ENT: Pearly zamarripa tympanic membranes bilaterally. Nasal mucosa is moist. No tenderness to palpation of the facial sinuses. Oropharynx without erythema, edema or exudate. NECK: Supple, trachea midline. No JVD or lymphadenopathy. CARDIOVASCULAR: Regular rate and rhythm without murmurs, gallops, or rubs. RESPIRATORY: Breath sounds clear and equal bilaterally. No accessory muscle use. GASTROINTESTINAL: Abdomen soft, non-tender, nondistended. + Bowel sounds MUSCULOSKELETAL: No cyanosis, or edema. Full, active range of motion. Strength 5/5. Neurovascularly intact. BACK: No obvious deformity. No CVA tenderness. Point tenderness just lateral to the midline of the left upper back. Data Data Last Documented VS Vital Signs Date Time Temp Pulse Resp B/P (MAP) Pulse Ox O2 Delivery O2 Flow Rate FiO2 06/28/17 14:15 Room Air 06/28/17 13:55 98.5 77 16 145/78 (100) 99 Orders Orders Ed Discharge Order (06/28/17 15:23) MDM Medical Decision Making Medical Screen Exam Complete: Yes Emergency Medical Condition: Yes Differential Diagnosis Upper airway cough syndrome versus viral illness versus chronic back pain versus other Narrative Course 31-year-old 22 week female presents to the ED for evaluation of 2 day history of sinus pressure, sinus congestion, yellow rhinorrhea, nonproductive cough. Patient endorses mild sore throat. Denies difficulty swallowing. She endorses 6/10 pain in the left shoulder blade area which she associates with her coughing. Patient denies fever, chills, ear pain, abdominal pain, dysuria, vaginal bleeding, vaginal discharge. She just finished a course of antibiotics for sinusitis. She states that her symptoms did improve from that time. She did not receive this years flu vaccine. She requests a muscle relaxant for her back pain that is safe in . Vitals reviewed. ENT exam unremarkable. Chest CT AB. She does have point tenderness just lateral to the midline of the thoracic spine in the shoulder blade area. She is prescribed loratadine, Sudafed and a few doses of Flexeril. She is instructed to stop smoking, take medications as prescribed, follow up with her primary care provider. She indicated understanding of instructions and is agreeable care plan. Patient is stable and discharged home. Diagnosis Primary Impression: Viral syndrome Additional Impressions: Upper airway cough syndrome Musculoskeletal back pain Referrals: Nursing Educator Patient Instructions: General Instructions, Viral Syndrome (ED) Additional Instructions: Rest, hydrate. Return to normal, gentle activities as tolerated. Take loratadine daily as prescribed. Take pseudoephedrine 60 mg 4 times a day as prescribed. Intranasal Flonase may also help to reduce her symptoms. Continue with Tylenol and warm compresses as needed for musculoskeletal back pain. Flexeril at bedtime to help with muscle spasm. Follow-up with the regional dedicated truck driver. Return to the ED for any urgent or emergent medical condition. Med/Other Pt SpecificInfo: Prescription(s) given Scripts Cyclobenzaprine (Flexeril) 10 Mg Tab 10 MG PO TID for Muscle Spasm, #12 TAB 0 Refills Prov: Hernando Romeo MD 06/28/17 Loratadine (Claritin) 10 Mg Cap 10 MG PO DAILY for Allergy Management for 30 Days, #30 CAP 0 Refills Prov: Hernando Romeo MD 06/28/17 Pseudoephedrine (Pseudoephedrine) 60 Mg Tab 60 MG PO Q6H Y for NASAL CONGESTION, #15 TAB 0 Refills Prov: Hernando Romeo MD 06/28/17 Disposition: 01 DISCHARGE HOME Condition: Stable rOquidea Hurtado Jun 28, 2017 14:59
[2017-06-28] MEDS ORDERED: SUDO60TA2 PO (15:22)
[2017-06-28] MEDS ORDERED: CLAR10CA3 PO (15:22)
[2017-06-28] MEDS ORDERED: CYCL10TA PO (15:22)
== END 2017-06-28 15:33 | disposition home or self-care (01) ==
LOC: PHEFT 13:41
DX: O26.892 Other specified pregnancy related conditions, second trimester (principal); B34.9 Viral infection, unspecified; M54.9 Dorsalgia, unspecified; O24.419 Gestational diabetes mellitus in pregnancy, unspecified control; O99.342 Other mental disorders complicating pregnancy, second trimester; F31.9 Bipolar disorder, unspecified; F43.10 Post-traumatic stress disorder, unspecified; O99.332 Smoking (tobacco) complicating pregnancy, second trimester; Z3A.22 22 weeks gestation of pregnancy
CPT/HCPCS: 99284

== ENCOUNTER 2017-07-16 15:40 | Emergency (ER) | payer MEDICAID ==
[2017-07-16 16:28] LABS: BILIRUBIN, URINE NEG (NEG); BLOOD, URINE NEG (NEG); GLUCOSE,URINE NEG (NEG); KETONE, URINE NEG (NEG); NITRITE,URINE NEG (NEG); URINE LEUKOCYTE ESTERASE NEG (NEG)
[2017-07-16 16:38] LABS: URINE COLOR YELLOW (YELLW/STRAW)
[2017-07-16 16:39] LABS: COMMENT (UR) CULT NOT INDICATED; CULTURE IF INDICATED CULT NOT INDICATED; SQUAMOUS EPITHELIAL CELL URINE 0-5 /hpf (0-5)
== END 2017-07-16 17:07 | disposition left against medical advice (07) ==
LOC: PHED 15:40
DX: O26.892 Other specified pregnancy related conditions, second trimester (principal); R10.9 Unspecified abdominal pain; O99.342 Other mental disorders complicating pregnancy, second trimester; F31.9 Bipolar disorder, unspecified; F43.10 Post-traumatic stress disorder, unspecified; F17.210 Nicotine dependence, cigarettes, uncomplicated; Z3A.24 24 weeks gestation of pregnancy
CPT/HCPCS: 81001; 99283

== ENCOUNTER 2017-08-13 18:11 | Emergency (ER) | payer MEDICAID ==
[~2017-08-13 18:11] MED LIST changes: -AMOX875T PO; +CLAR10CA3 PO; +CYCL10TA PO; +SUDO60TA2 PO; -VENTAER INH; -ZOFR4TAB3 SL
[2017-08-13 18:52] VITALS: BP 112/62; PULSE 65
[2017-08-13 19:29] VITALS: RESP 18
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
[2017-08-13 20:03] LABS: HEMATOCRIT 33.6 % (35.0-46.0); HEMOGLOBIN 11.4 GM/DL (11.6-15.3); MEAN CELL VOLUME 87.8 FL (80.0-100.0); MEAN CORPUSCULAR HEMOGLOBIN 29.7 PG (27.0-34.0); MEAN CORPUSCULAR HGB CONC 33.8 % (32.0-36.0); MEAN PLATELET VOLUME 9.9 FL (7.0-11.0); PLATELET COUNT 157 TH/MM3 (150-450); RED BLOOD COUNT 3.82 MIL/MM3 (4.00-5.30); RED CELL DISTRIBUTION WIDTH 13.6 % (11.6-17.2); WHITE BLOOD COUNT 8.4 TH/MM3 (4.0-11.0)
== END 2017-08-13 22:37 | disposition home or self-care (01) ==
LOC: HOBED 18:11
DX: O9A.213 Injury, poisoning and certain other consequences of external causes complicating pregnancy, third trimester (principal); V18.0XXA Pedal cycle driver injured in noncollision transport accident in nontraffic accident, initial encounter; Y93.55 Activity, bike riding; Z3A.28 28 weeks gestation of pregnancy; Z72.0 Tobacco use
CPT/HCPCS: 36415; 80307; 83030; 85027; 99284; G0481

== ENCOUNTER → 2017-08-23 | Outpatient (CLI) | payer MEDICAID | LOC: HPND 12:58 | PROVIDERS: ATTEND Obstetrics & Gynecology | DX: O99.212 Obesity complicating pregnancy, second trimester (principal); O98.512 Other viral diseases complicating pregnancy, second trimester | CPT/HCPCS: 76811 ==

== ENCOUNTER 2017-10-11 12:28 | Emergency (ER) | payer MEDICAID ==
[2017-10-11 12:48] VITALS: BP 143/77; PULSE 96; RESP 20; TEMP 98.2; O2SAT 9; O2SAT 99
--- NOTE | 2017-10-11 15:20 | PD ---
HPI Chief Complaint: Medical Clearance Time Seen by Provider: 14:59 Travel History International Travel<30 days: No Contact w/Intl Traveler<30days: No Traveled to known affect area: No History of Present Illness HPI 31-year-old female, approximately 37 weeks , presents to the emergency department with multiple complaints. Her first complaint is continued right upper dental pain. She is currently taking amoxicillin without relief. She is waiting for her insurance to kick in in order to see a dentist for it to be pulled. She has been taking Tylenol and is concerned because she has hepatitis C. she is also concerned that her feet and lower legs are swollen. Says she can eat or drink and her blood sugar keeps dropping. Symptoms are moderate in severity. Aggravated with eating and drinking. Pain is constant. No known relieving factors. Her second complaint is rectal bleeding that she noticed this morning, constipation and says she has been straining to go to the bathroom. She reports occasional abdominal cramping and contractions. She says the blood in her stool definitely did not come from her vagina, because she checked. Denies vaginal bleeding, leaking, discharge. Does not know if she has hemorrhoids. Says she knows that she is "not in labor or having this baby because this is her fifth kid." No known relieving or aggravating factors. Symptoms are moderate in severity. No known relieving or aggravating factors. History of hepatitis C. allergies to citalopram. Has no other medical complaints. No other modifying factors or associated signs and symptoms. PFSH Past Medical History Hx Anticoagulant Therapy: No Bipolar Disorder: Yes Diminished Hearing: No Hepatitis: Yes Psychiatric: Yes (PTSD) Immunizations Current: Yes ?: : 5 Para: 4 Miscarriage: 1 Dilation and Curettage (D&C): Yes Past Surgical History Gynecologic Surgery: Yes (LEEP) Social History Alcohol Use: Yes Tobacco Use: Yes Substance Use: No (in [facility]covery) Allergies-Medications (Allergen,Severity, Reaction): Coded Allergies: citalopram (Unverified Allergy, Intermediate, Hives, 07/16/17) Reported Meds & Prescriptions Reported Meds & Active Scripts Active Flexeril (Cyclobenzaprine HCl) 10 Mg Tab 10 Mg PO TID Claritin (Loratadine) 10 Mg Cap 10 Mg PO DAILY 30 Days Pseudoephedrine (Pseudoephedrine HCl) 60 Mg Tab 60 Mg PO Q6H PRN Review of Systems Except as stated in HPI: all other systems reviewed are Neg Physical Exam Narrative GENERAL: Well-nourished, well-developed female patient, in no acute distress; afebrile, nontoxic-appearing SKIN: Warm and dry. HEAD: Atraumatic. Normocephalic. No facial edema, erythema, tenderness on palpation. No lymphadenopathy. EYES: Pupils equal and round. No scleral icterus. No injection or drainage. ENT: Mucosa pink and moist. No erythema or exudates. No uvular edema. No uvular , palatal, or tonsillar deviation. Airway patent. EARS: Bilateral pinnae and external canals appear within normal limits. Bilateral tympanic membranes without erythema, dullness or perforation. MOUTH: Mucous membranes moist, no lesions, tongue and gums appear normal. Right upper second molar with tenderness on palpation. Surrounding gingiva is without erythema, edema, drainage. No obvious abscess noted. NECK: Trachea midline. No lymphadenopathy. CARDIOVASCULAR: Regular rate. RESPIRATORY: No accessory muscle use. GASTROINTESTINAL: . MUSCULOSKELETAL: No obvious deformities. No clubbing. No cyanosis. No edema. NEUROLOGICAL: Awake and alert. Oriented 3. No obvious cranial nerve deficits. Motor grossly within normal limits. Normal speech. PSYCHIATRIC: Appropriate mood and affect; insight and judgment normal. Data Data Last Documented VS Vital Signs Date Time Temp Pulse Resp B/P (MAP) Pulse Ox O2 Delivery O2 Flow Rate FiO2 10/11/17 12:48 98.2 96 20 143/77 (99) 99 MDM Medical Decision Making Medical Screen Exam Complete: Yes Emergency Medical Condition: Yes Medical Record Reviewed: Yes Differential Diagnosis Dentalgia, dental abscess, infected dental carry, contractions, constipation, hemorrhoids Narrative Course 31-year-old female, approximately 37 weeks , presents with complaint of continued right upper tooth pain. She is currently taking amoxicillin. She wants something more for pain other than Tylenol. I advised her that since she is I cannot give her anything else. I did offer to give her a prescription for some Magic mouthwash. She is also complaining of straining to stool, constipation and blood in her stool this morning. She reports occasional abdominal "contractions' but says she is not in labor and she knows that the baby is not trying to come out because this is her fifth . She says that she knows the blood came from her rectum and not from her vagina. I was going to do a rectal exam and the patient became irritated and said it was a waste of her time to come here and that she is leaving. I advised the patient to go to OB ED for evaluation. I discussed leaving AGAINST MEDICAL ADVICE and the patient walked out. AMA: The risks of leaving against medical advice without further evaluation treatment were discussed with the patient. These risks include cardiac dysfunction, cardiac dysrhythmia, possible heart attack, possible stroke or . The patient indicated understanding of these risks and appeared to have the capacity to make this decision. Diagnosis Primary Impression: Left against medical advice Disposition: 07 AGAINST MEDICAL ADVICE Leanna Ricketts Oct 11, 2017 15:20
== END 2017-10-11 15:33 | disposition left against medical advice (07) ==
LOC: NEPD 12:28
DX: O26.893 Other specified pregnancy related conditions, third trimester (principal); Z3A.37 37 weeks gestation of pregnancy; M79.89 Other specified soft tissue disorders; F31.9 Bipolar disorder, unspecified; O99.343 Other mental disorders complicating pregnancy, third trimester; O99.333 Smoking (tobacco) complicating pregnancy, third trimester
CPT/HCPCS: 99281